=== PATIENT | female | born 1945 | race Caucasian/White ===

== ENCOUNTER 2018-05-14 15:21 | Inpatient (IN) | payer MEDICARE, OTHER ==
[~2018-05-14] VITALS: Ht 165.1 cm; Wt 73.6 kg
[2018-05-14] MEDS ORDERED: HYDROCODONE/APAP 7.5MG-325MG 1 EA TAB PO PRN (15:30)
[2018-05-14] MEDS ORDERED: MORPHINE SULFATE 2 MG/ML SYR IM STA (16:08)
--- NOTE | 2018-05-14 16:22 | Diagnostic Imaging Report ---
EXAM: CT Pelvis WITHOUT contrast INDICATION: Hip pain. Left hip fracture. Fall. COMPARISON: None. TECHNIQUE: Pelvis were scanned utilizing a multidetector helical scanner from the iliac crest to the pubic symphysis without administration of IV contrast. Coronal and sagittal reformations were obtained. Routine protocol was performed. IV CONTRAST: None. ORAL CONTRAST: Water RADIATION DOSE: Total DLP: 438.41 mGy*cm Estimated effective dose: (DLP x 0.015 x size factor) mSv COMPLICATIONS: None FINDINGS: LINES and TUBES: None. GI TRACT: There is a large amount of retained feces in the colon which could be due to constipation. PELVIC ORGANS/BLADDER: Unremarkable. LYMPH NODES: No lymphadenopathy. VESSELS: Scattered vascular calcifications are seen.. PERITONEUM / RETROPERITONEUM: No free air or fluid. BONES: Postsurgical changes are seen about the visualized lower lumbar spine/sacrum. There is diffuse osteopenia. There is a comminuted slightly displaced left hip fracture through the left femoral head/neck region. This is best seen on coronal reformatted image 50 through 55. Several adjacent small bone fragments are seen. Scattered degenerative changes are seen. SOFT TISSUES: A metallic device is seen over the left anterior lower abdomen. IMPRESSION: 1. Comminuted slightly displaced left hip fracture through the left femoral head/neck region. Several adjacent small bone fragments are seen Signed by: Dr. Myron Culver M.D. on 05/14/2018 4:18 PM
[2018-05-14] MEDS ORDERED: ONDANSETRON HCL INJ 2 MG/ML VIAL IV STA (17:15)
[2018-05-14 17:22] LABS: BASOPHILS % 0.4 % (0.0-1.0); EOSINOPHILS # (AUTO) 0.1 (0.0-0.4); HEMATOCRIT 32.6 % (34.2-44.1); HEMOGLOBIN 10.9 g/dL (12.0-16.0); LYMPHOCYTES # (AUTO) 0.8 (1.0-3.2); LYMPHOCYTES % 15.2 % (18.0-39.1); MEAN CORPUSCULAR HEMOGLOBIN 31.2 pg (28-32); MEAN CORPUSCULAR HGB CONC 33.4 g/dL (31-35); MEAN CORPUSCULAR VOLUME 93.4 fL (81-99); MONOCYTES # (AUTO) 0.5 (0.2-0.8); MONOCYTES % 8.8 % (4.4-11.3); NEUTROPHILS # (AUTO) 3.8 (2.1-6.9); NEUTROPHILS % 73.2 % (38.7-80.0); PLATELET COUNT 183 x10e3/uL (140-360); RED BLOOD COUNT 3.49 x10e6/uL (3.6-5.1); RED CELL DISTRIBUTION WIDTH 11.6 % (11.7-14.4)
[2018-05-14 17:37] LABS: INR 1.2; PROTHROMBIN TIME 14.3 seconds (11.9-14.5)
[2018-05-14 17:38] LABS: PARTIAL THROMBOPLASTIN TIME 31.6 seconds (23.8-35.5)
[2018-05-14 17:43] LABS: ALBUMIN 3.4 g/dL (3.5-5.0); ALBUMIN/GLOBULIN RATIO 1.1 (0.8-2.0); ANION GAP 11.7 mmol/L (8-16); CALCIUM 9.2 mg/dL (8.4-10.2); CREATININE, SERUM 1.03 mg/dL (0.57-1.11); POTASSIUM 3.7 mmol/L (3.5-5.1)
[2018-05-14] MEDS ORDERED: ONDANSETRON HCL INJ 2 MG/ML VIAL IV PRN (17:45)
[2018-05-14] MEDS: SODIUM CHLORIDE 0.9% 1000ML 1,000 ML IV SCH (18:14)
[2018-05-14] MEDS ORDERED: ABILIFY5 MG PO (18:17)
[2018-05-14] MEDS ORDERED: CHANTIX0.5 MG PO (18:17)
[2018-05-14] MEDS ORDERED: OMEPRAZOLE40 MG PO (18:17)
[2018-05-14] MEDS ORDERED: OXYBUTYNIN CHLOR5 MG PO (18:17)
[2018-05-14] MEDS ORDERED: PROPRANOLOL HCL40 MG PO (18:17)
[2018-05-14] MEDS ORDERED: GABAPENTIN300 MG PO (18:17)
[2018-05-14] MEDS ORDERED: CLONIDINE HCL0.1 MG PO (18:17)
[2018-05-14] MEDS ORDERED: COUMADIN2 MG PO (18:17)
--- NOTE | 2018-05-14 18:36 | Consultation ---
DATE OF CONSULTATION: May 14, 2018 CHIEF COMPLAINT: Left hip pain. HISTORY OF PRESENT ILLNESS: This patient is a 72-year-old female who complains of left hip pain after suffering a fall yesterday. She states she was walking out on her daughter's patio and tripped over a box landing on her left side. She states that she had difficulty bearing weight on the left leg. She states her pain got progressively worse, and thus she came into the ER this afternoon. She presents with outside x-rays, which show a left femoral neck fracture, and thus orthopedics was consulted. She states prior to the fall that she ambulated independently. 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 She is otherwise fairly healthy. PAST MEDICAL HISTORY: Hypertension, coronary artery disease with 2 stents placed roughly 5 years ago, history of 6 back surgeries, and recent pain pump placement. SOCIAL HISTORY: Patient is and lives alone. She states she has good family support from her children. She denies smoking or drinking. ALLERGIES: NO KNOWN DRUG ALLERGIES. PHYSICAL EXAMINATION GENERAL: This is a well-nourished female in no apparent distress. She is awake, alert and oriented appropriately. EXTREMITIES: Gross inspection of her left hip and thigh area shows no swelling. There is some slight bruising over the lateral thigh. There is tenderness to the area with palpation. She has pain with any attempts at passive range of motion of the left leg. The left leg is in neutral rotation. She has some abrasions over the anterolateral aspect of the knee. The knee is grossly stable. Her calf is soft and nontender. Distal motor exam at the foot and ankle is intact. Distal neurovascular exam is normal. IMAGING: Outside x-rays were reviewed and show a left femoral neck fracture. This is impacted. She also has a CT scan of the pelvis which shows the same thing. ASSESSMENT AND PLAN: This is a 72-year-old female with a left hip fracture. The findings and options were discussed with the patient and her daughter. The treatment was discussed. I explained the surgical nature of the fracture. The risks and benefits of a left total hip replacement were explained. The recovery was discussed. The patient and her daughter state they both understand and wish to proceed. I also discussed the increased difficulty with pain management and the postoperative care. Due to her lengthy use of chronic narcotics, the patient states she understands this and has dealt with this in the past with previous surgeries. We plan on proceeding with a left total hip replacement sometime tomorrow. DICTATED BY AARTI EDEN PA-C Job#: [id number] RI
[2018-05-14 18:44] VITALS: BP 144/65
[2018-05-14 20:00] VITALS: BP 129/62
[2018-05-14] MEDS: MORPHINE SULFATE 2 MG/ML SYR IV PRN (20:20)
[2018-05-14 23:21] VITALS: BP 129/62
[2018-05-14 23:27] VITALS: BP 129/62
[2018-05-14 23:34] VITALS: BP 129/62
[2018-05-15] VITALS (9 sets, daily range): BP systolic 93–153; BP diastolic 47–72
[2018-05-15] MEDS: MORPHINE SULFATE 2 MG/ML SYR IV PRN ×4 (00:44→20:25)
[2018-05-15] MEDS ORDERED: HYDROCODONE/APAP 7.5MG-325MG 1 EA TAB PO PRN (03:46)
[2018-05-15] MEDS: SODIUM CHLORIDE 0.9% 1000ML 1,000 ML IV SCH ×3 (06:30→23:42)
[2018-05-15] MEDS ORDERED: ROPIVACAINE 246.25 MG, EPINEPHRINE HCL 1:1000 0.5 MG, CLONIDINE HCL 0.08 MG, KETOROLAC ... IV ONE ×5 (09:45)
[2018-05-15] MEDS ORDERED: CEFAZOLIN SOD 2 GM/D5W 50ML 50 ML IV SCH (11:00)
[2018-05-15] MEDS ORDERED: TRANEXAMIC ACID 1,000 MG/10 ML ML ONE (11:50)
[2018-05-15] MEDS ORDERED: BACITRACIN 50,000 UNIT VIAL ONE (11:51)
[2018-05-15] MEDS ORDERED: ROCURONIUM BROMIDE 10 MG/ML 5ML VIAL ONE (12:03)
[2018-05-15] MEDS ORDERED: LIDOCAINE HCL 2% LOCAL INJ 5 ML SDV VIAL INJ ONE (12:03)
[2018-05-15] MEDS ORDERED: GLYCOPYRROLATE INJ 1MG/ 5 ML SYR ONE (12:03)
[2018-05-15] MEDS ORDERED: ONDANSETRON HCL INJ 2 MG/ML VIAL ONE (12:03)
[2018-05-15] MEDS ORDERED: PROPOFOL IV EMULSION 10 MG/ML 20 ML VIAL ONE (12:03)
[2018-05-15] MEDS ORDERED: DEXAMETHASONE SOD PHOS INJ 4 MG/ML VIAL ONE (12:03)
[2018-05-15] MEDS ORDERED: NEOSTIGMINE 5 MG/5ML SYR ONE (12:03)
[2018-05-15] MEDS ORDERED: SEVOFLURANE INHAL SOLN 250 ML PEN BTL ONE (12:03)
[2018-05-15] MEDS ORDERED: PROMETHAZINE HCL (IM) 25 MG/ML VIAL INJ PRN (13:45)
[2018-05-15] MEDS ORDERED: HYDROCODONE/APAP 5MG-325MG TAB PO PRN (13:45)
[2018-05-15] MEDS ORDERED: ONDANSETRON HCL INJ 2 MG/ML VIAL IV PRN (13:45)
[2018-05-15] MEDS ORDERED: ZOLPIDEM TARTRATE 5 MG TAB PO PRN (13:45)
[2018-05-15] MEDS ORDERED: DOCUSATE SODIUM 100 MG CAP PO PRN (13:45)
[2018-05-15] MEDS ORDERED: ACETAMINOPHEN 650 MG SUPP PR PRN (13:45)
[2018-05-15] MEDS ORDERED: CEFAZOLIN SOD 1 GM/NS 50ML 50 ML IV SCH (14:00)
--- NOTE | 2018-05-15 14:28 | Diagnostic Imaging Report ---
PROCEDURE:X-RAY PELVIS, AP VIEW COMPARISON:CT pelvis 05/14/2018 INDICATIONS:POST OP HIP LEFT FINDINGS: Interval placement of a left hip prothesis for the previously noted left femoral neck fracture. Hardware appears intact without hardware fracture or loosening. No interval development of acute fractures or dislocations. Fixation hardware of the SI joints and spine are noted. The bones are demineralized. A battery pack projects over the left lower abdomen. Soft-tissue swelling and few foci of subcutaneous emphysema of the left hip related to recent surgery. CONCLUSION: Interval placement of a left hip prothesis for the previously noted left femoral neck fracture without radiographic complication. Dictated by: Catalino Perez M.D. on 05/15/2018 at 14:31 Electronically approved by: Catalino Perez M.D. on 05/15/2018 at 14:31
--- NOTE | 2018-05-15 14:44 | Operative Report ---
DATE OF PROCEDURE: May 15, 2018 BUSINESS BROKER: Oli Taylor PA-C The patient was brought to the operating room for induction of anesthesia. Throughout this case, my PA's assistance was necessary for retraction of soft tissue and positioning of the extremity. This allows for efficient and technically successful execution of the operation and is considered medically necessary. PREOPERATIVE DIAGNOSIS: Left femoral neck fracture. POSTOPERATIVE DIAGNOSIS: Left femoral neck fracture. PROCEDURE: Left total hip arthroplasty. INDICATIONS: The patient is a 72-year-old lady with an acute left femoral neck fracture. Her past history is significant for failed back syndrome. She was recently treated by a pain management doctor with a pain pump placement. This has not been injected with medicine as yet. 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 We have discussed the findings and options. We plan on a left total hip arthroplasty. The risks and benefits have been explained. She states she understands and wishes to proceed. DESCRIPTION OF PROCEDURE: The patient was brought to the operating room and placed under general anesthetic. She received prophylactic antibiotics and tranexamic acid in the holding area. She was positioned in the right lateral decubitus position. Her left hip was prepped and draped in a sterile manner. A preoperative time out was performed. A posterior approach was made to the left hip. Care was taken to avoid injury to the sciatic nerve. The anesthetic team had some challenges controlling her blood pressure due to her chronic pain medicine. More bleeding than usual was encountered. The posterior capsule was carefully exposed and released. The hip was brought up into flexion and internal rotation. An oscillating saw was used to resect the remainder of the femoral neck. The femoral head was removed. Acetabular retractors were placed. A [employer] system was used throughout the case. The socket was sequentially reamed up to 53 mm. Labral remnants were excised. A Ileana [employer]omet OsseoTi socket with a 54 mm outer diameter was then impacted into place. Fixation was augmented with a single 25 mm screw placed into the ilium. The wound was thoroughly irrigated on multiple occasions with a shower-tip pulsatile lavage. A portion of a 100 mL premixed pericapsular FADUMO injection was placed into the surrounding soft tissue. A highly crosslinked polyethylene liner with a 36 mm inner diameter was then impacted into place. Attention was directed towards the proximal femur. A box-cutting osteotome and taper pin reamer were used to establish entry to the femoral canal. The Taperloc broaches were trialed. A number 12 stem had good canal fill and stability for trial reduction. A standard neck and 36 mm head were felt to provide optimal soft-tissue balancing, episcopalian of limb length and stability. The hip was put through an arc of motion and noted to have no impingement or dislocation. The trial implants were removed. The remainder of the pericapsular injection was placed into the soft tissue. The hip was thoroughly irrigated with a pulsatile lavage. The implants were seated, and a final reduction was performed. The posterior capsule was repaired with number 2 Ethibond. The tensor fascia and gluteal fascia were closed with number 2 Ethibond. The skin was closed with subcuticular Vicryl, Mastisol and Steri-Strips. She was returned to a supine position after placing of sterile bandage. She was extubated and transported to the recovery room in stable condition. Blood loss was approximately 200 mL. At the end of the procedure, all needle and sponge counts were correct. Job#: [id number] EV
[2018-05-15] MEDS ORDERED: MIDAZOLAM HCL 2 MG/2 ML VIAL ONE (15:28)
[2018-05-15] MEDS ORDERED: MORPHINE SULFATE INJ 10 MG/ML ONE (15:28)
[2018-05-15] MEDS ORDERED: FENTANYL CITRATE/PF 100MCG/2 ML INJ ONE (15:28)
[2018-05-15] MEDS: ASPIRIN 325 MG TAB PO SCH (16:53)
[2018-05-15] MEDS: CEFAZOLIN SOD 1 GM VIAL IV SCH (16:53)
--- NOTE | 2018-05-15 16:56 | Consultation ---
DATE OF CONSULTATION: May 15, 2018 CARDIOLOGY CONSULTATION REQUESTING PHYSICIAN: Dr. Jennifer Mojica REASON FOR CONSULTATION: Preoperative evaluation. HISTORY OF PRESENT ILLNESS: This is a 72-year-old woman with history of coronary artery disease status post stents times 2, carotid artery disease, hypertension, and degenerative disk disease who presented after a fall. The patient reports she had been walking out onto the patio to check on her dogs when she tripped over a box. She denied any chest pain or lightheadedness prior to her fall. Due to the subsequent pain, she presented to the ER for further evaluation and was found to have a left femoral neck fracture for which orthopedic surgery was consulted. The patient denies any chest pain, shortness of breath, palpitations, edema, orthopnea, PND or lightheadedness. She is status post left total hip arthroplasty by orthopedic surgery earlier today. REVIEW OF SYSTEMS: Negative except as per HPI. PAST MEDICAL HISTORY 1. Hypertension. 2. Coronary artery disease status post stent times 2 approximately 5 years prior. 3. Carotid artery disease. 4. Degenerative disk disease. PAST SURGICAL HISTORY 1. Multiple back and neck surgeries. 2. Hysterectomy. 3. Recent pain pump implantation. 4. Bunionectomy. ALLERGIES: NO KNOWN DRUG ALLERGIES. MEDICATIONS: Please see EMR. SOCIAL HISTORY: Denies tobacco, alcohol, illicit drugs. FAMILY HISTORY: Noncontributory. PHYSICAL EXAMINATION VITAL SIGNS: Temperature 97.5 degrees, pulse 91, respiratory rate 16, blood pressure 102/56, oxygen saturation 91% on nasal cannula. GENERAL: Elderly woman, well-developed, well-nourished, in no acute distress. HEENT: Normocephalic, atraumatic. Pupils equal. No scleral icterus. NECK: Supple. No thyromegaly or cervical lymphadenopathy. No carotid bruits. LUNGS: Clear to auscultation bilaterally. No wheezes or crackles. CARDIOVASCULAR: Normal rate, regular rhythm. No murmur. Normal S1, S2. ABDOMEN: Soft, nontender. NEURO: Nonfocal exam. EXTREMITIES: Trace edema on the left status post surgery. LABS: WBC 5.12, hemoglobin 10.9, hematocrit 32.6, platelets 183. Sodium 132, potassium 3.7, chloride 96, CO2 29, BUN 17, creatinine 1.03. IMPRESSION 1. Left femoral neck fracture status post left hip arthroplasty. 2. Coronary artery disease status post stent times 2. 3. Carotid artery disease. 4. Degenerative disk disease. 5. Hypertension. RECOMMENDATIONS: Continue home cardiac medications. Monitor patient on telemetry. Given fall and history of carotid artery disease, we will obtain bilateral carotid Dopplers. Monitor patient on telemetry while admitted. We will check fasting lipid panel as well. Resume aspirin once cleared from orthopedic standpoint. Thank you for this consult. We will continue to follow. Job#: [id number] EBLIA POWELL
[2018-05-15] MEDS ORDERED: CELECOXIB 100 MG CAP PO SCH (17:00)
[2018-05-15] MEDS: ACETAMINOPHEN 1000 MG/100 ML IV SCH (17:41)
[2018-05-15] MEDS: KETOROLAC TROMETHAMINE 30 MG/ML VIAL IV PRN (18:49)
[2018-05-15] MEDS ORDERED: GABAPENTIN300 MG PO (20:43)
[2018-05-15] MEDS ORDERED: CRESTOR10 MG PO (20:43)
[2018-05-15] MEDS ORDERED: VENLAFAXINE HCL75 M2 PO (20:43)
[2018-05-15] MEDS ORDERED: LISINOPRIL10 MG PO (20:43)
[2018-05-15] MEDS: DIPHENHYDRAMINE HCL INJ 50 MG/ML VIAL IM/IV PRN (21:55)
[2018-05-16] VITALS: BP 122/58
[2018-05-16] MEDS: CEFAZOLIN SOD 1 GM VIAL IV SCH ×2 (00:30→09:00)
[2018-05-16 04:00] VITALS: BP 160/86
[2018-05-16] MEDS: ACETAMINOPHEN 1000 MG/100 ML IV SCH ×3 (06:00→13:00)
[2018-05-16 06:31] LABS: HEMATOCRIT 25.5 % (34.2-44.1); HEMOGLOBIN 8.7 g/dL (12.0-16.0)
[2018-05-16 07:51] VITALS: BP 155/69
[2018-05-16] MEDS: MORPHINE SULFATE 2 MG/ML SYR IV PRN ×4 (09:00→22:47)
[2018-05-16] MEDS: DIPHENHYDRAMINE HCL INJ 50 MG/ML VIAL IM/IV PRN ×2 (09:00→17:57)
[2018-05-16] MEDS: ASPIRIN 325 MG TAB PO SCH ×2 (09:00→16:58)
[2018-05-16] MEDS: LISINOPRIL 20 MG TAB PO SCH (09:00)
[2018-05-16] MEDS: GABAPENTIN 300 MG CAP PO SCH ×3 (09:00→20:40)
[2018-05-16] MEDS: VENLAFAXINE HCL 75 MG CAPCR PO SCH (09:00)
[2018-05-16] MEDS: CELECOXIB 200 MG CAP PO SCH ×2 (09:00→16:58)
[2018-05-16] MEDS ORDERED: LISINOPRIL 10 MG TAB PO SCH (09:00)
[2018-05-16 11:42] VITALS: BP 119/59
[2018-05-16] MEDS: KETOROLAC TROMETHAMINE 30 MG/ML VIAL IV PRN (11:58)
[2018-05-16] MEDS ORDERED: ACETAMINOPHEN 1000 MG/100 ML IV PRN (13:45)
--- NOTE | 2018-05-16 15:23 | Progress Note ---
DATE: May 16, 2018 SUBJECTIVE: The patient denies chest pain or shortness of breath. She walked with physical therapy 150 feet. OBJECTIVE VITAL SIGNS: Temperature 98.2 degrees, pulse 79, respiratory rate 16, blood pressure 119/59. Oxygen saturation 99% on room air. GENERAL: Awake, alert, in no acute distress. LUNGS: Clear to auscultation bilaterally. No wheezes or crackles. CARDIOVASCULAR: Normal rate, regular rhythm. No murmur. Normal S1, S2. ABDOMEN: Soft, nontender. EXTREMITIES: Trace edema. CARDIAC MEDICATIONS 1. Lisinopril 40 mg p.o. daily. 2. Aspirin 325 mg p.o. b.i.d. 3. Simvastatin 20 mg p.o. nightly. LABS: Hemoglobin 8.7, hematocrit 25.5. TELEMETRY: Normal sinus rhythm. IMPRESSION 1. Left femoral neck fracture status post left hip arthroplasty. 2. Coronary artery disease status post stent times 2. 3. Carotid artery disease. 4. Degenerative disk disease. 5. Hypertension. RECOMMENDATIONS: Continue home cardiac medications. The patient's blood pressure is for the most acceptable for age. Carotid Dopplers suggested hemodynamically significant stenosis in the left carotid artery. Once patient has recovered from her surgery, plan for CTA of the neck to further evaluate the severity of her carotid disease. The patient's lipid panel is well controlled. We will make no changes to her therapy at this time. Patient has been started on high dose aspirin, decrease to 81 mg daily if acceptable from orthopedic standpoint. Thank you for this consult. We will continue to follow. Job#: [id number] BELIA
[2018-05-16 16:20] VITALS: BP 141/63
[2018-05-16 20:00] VITALS: BP 147/67
[2018-05-16] MEDS: HYDROCODONE/APAP 7.5MG-325MG 1 EA TAB PO PRN ×2 (20:05→20:36)
[2018-05-16] MEDS ORDERED: SIMVASTATIN 20 MG TAB PO SCH (21:00)
[2018-05-16] MEDS ORDERED: SIMVASTATIN 40 MG TAB PO SCH (21:00)
[2018-05-17 00:31] VITALS: BP 137/63
[2018-05-17 04:00] VITALS: BP 137/63
[2018-05-17] MEDS: MORPHINE SULFATE 2 MG/ML SYR IV PRN ×2 (04:16→08:16)
[2018-05-17 06:28] LABS: HEMATOCRIT 26.5 % (34.2-44.1); HEMOGLOBIN 8.8 g/dL (12.0-16.0)
[2018-05-17 07:42] VITALS: BP 160/67
[2018-05-17] MEDS: GABAPENTIN 300 MG CAP PO SCH ×2 (08:48→15:00)
[2018-05-17] MEDS: CELECOXIB 200 MG CAP PO SCH (08:48)
[2018-05-17] MEDS: VENLAFAXINE HCL 75 MG CAPCR PO SCH (08:48)
[2018-05-17] MEDS: LISINOPRIL 20 MG TAB PO SCH (08:48)
[2018-05-17] MEDS: ASPIRIN 325 MG TAB PO SCH (08:48)
--- NOTE | 2018-05-17 09:32 | Discharge Summary ---
Ms. Bruno is a 72-year-old female with a history of chronic back pain. She has a pain pump. Hypertension, hyperlipidemia, coronary artery disease, status post stent. She came to the emergency room after falling and breaking her left hip. She had a total hip replacement the day before yesterday. At the present time, she is walking more than 100 yards. She is feeling very good, so the plan is to discharge her home. On physical examination, she is awake and alert. Temperature is 98.6, blood pressure 160/67. The heart has regular rate. Lungs are clear to auscultation. Abdomen is soft. On the blood work, potassium is 3.7, creatinine 1.03, glucose 135, white count 5.12, hemoglobin 8.8, hematocrit 26.5. DISCHARGE DIAGNOSES 1. Status post left hip fracture, status post replacement. 2. Chronic back pain. 3. Coronary artery disease, status post stent. 4. Hypertension. The plan at the present time is to discharge her home if it is okay with orthopedics. Continue all her home medications. Follow up with her PCP in 1 week. She needs to follow up with orthopedics as directed by them. Please see home medication reconciliation list. All of this was discussed with the patient and daughter, and all questions were answered to satisfaction. EDMUNDO GALLEGO MD Job#: [id number]
[2018-05-17] MEDS: HYDROCODONE/APAP 7.5MG-325MG 1 EA TAB PO PRN (10:40)
[2018-05-17 12:06] VITALS: BP 140/63
--- NOTE | 2018-05-17 12:22 | Progress Note ---
DATE: May 17, 2018 CARDIOLOGY PROGRESS NOTE SUBJECTIVE: The patient denies chest pain or shortness of breath. She states she will be going home later today. OBJECTIVE VITAL SIGNS: Temperature 98.6 degrees, pulse 100, respiratory rate 20, blood pressure 166/67, oxygen saturation 93% on room air. GENERAL: Awake, alert, in no acute distress. LUNGS: Clear to auscultation bilaterally. No wheezes or crackles. CARDIOVASCULAR: Normal rate, regular rhythm. No murmur. Normal S1, S2. ABDOMEN: Soft, nontender. EXTREMITIES: No edema. CARDIAC MEDICATIONS 1. Lisinopril 40 mg p.o. daily. 2. Aspirin 325 mg p.o. b.i.d. 3. Simvastatin 20 mg p.o. nightly. LABS: Hemoglobin 8.8, hematocrit 26.5. TELEMETRY: Normal sinus rhythm. IMPRESSION 1. Left femoral neck fracture, status post left hip arthroplasty. 2. Coronary artery disease, status post stent times 2. 3. Carotid artery disease with evidence of hemodynamically significant stenosis in the left carotid. 4. Degenerative disk disease. 5. Hypertension. RECOMMENDATIONS: Continue current cardiac medications. The patient's blood pressure is typically acceptable for age. Once the patient has recovered from her surgery, plan for CTA of the neck to further evaluate the severity of her carotid disease. The patient is on aspirin 325 mg p.o. b.i.d. per orthopedic surgery. Once this is no longer needed, plan to decrease to 81 mg p.o. daily. Thank you for this consult. We will continue to follow. Job#: [id number]
== END 2018-05-17 15:57 | disposition home or self-care (01) | DRG 470 ==
LOC: ER 15:21 → ERHOLD 17:44 → MED/SURG3 18:37 → MED/SURG 05-15 14:28
PROVIDERS: ADMIT Internal Medicine; ATTEND Internal Medicine
PROC: 0SRB0J9 Replacement of Left Hip Joint with Synthetic Substitute, Cemented, Open Approach (ICD-10-PCS; principal; 2018-05-15 14:00)
DX: S72.002A Fracture of unspecified part of neck of left femur, initial encounter for closed fracture (principal); I10 Essential (primary) hypertension; I25.10 Atherosclerotic heart disease of native coronary artery without angina pectoris; G89.29 Other chronic pain; Z95.5 Presence of coronary angioplasty implant and graft; M54.2 Cervicalgia; M50.30 Other cervical disc degeneration, unspecified cervical region; Z79.01 Long term (current) use of anticoagulants; E78.5 Hyperlipidemia, unspecified; I65.22 Occlusion and stenosis of left carotid artery; W19.XXXA Unspecified fall, initial encounter
CPT/HCPCS: 36415; 72170; 72192; 80053; 80061; 85014; 85018; 85025; 85610; 85730; 86850; 86900; 93880; 97139; 99284; C1713; J0171; J0690; J1100; J1200; J1885; J2001; J2250; J2270; J2405; J2795; J7030

== ENCOUNTER → 2018-10-02 | Outpatient (CLI) | payer MEDICARE, OTHER ==
[~2018-10-02] MED LIST: ABILIFY5 MG PO; CHANTIX0.5 MG PO; CLONIDINE HCL0.1 MG PO; COUMADIN2 MG PO; CRESTOR10 MG PO; GABAPENTIN300 MG PO; IOPAMIDOL 370 MG/ML 200 ML INFUS..BTL INJ ONE; LISINOPRIL10 MG PO; OMEPRAZOLE40 MG PO; OXYBUTYNIN CHLOR5 MG PO; PROPRANOLOL HCL40 MG PO; SODIUM CHLORIDE 0.9% 50ML 50 ML ONE; VENLAFAXINE HCL75 M2 PO
[2018-10-02 15:14] LABS: BLOOD UREA NITROGEN 17 mg/dL (7-26); BUN/CREATININE RATIO 20 (6-25); CREATININE, SERUM 0.83 mg/dL (0.57-1.11); EST GLOMERULAR FILTRATION RATE > 60 ML/MIN (60-)
--- NOTE | 2018-10-04 09:39 | Diagnostic Imaging Report ---
EXAMINATION: CT angiogram of the neck CLINICAL HISTORY: Dizziness, severe carotid stenosis, pre-stent evaluation COMPARISON STUDIES: None TECHNIQUE: Axial images were obtained from the thoracic inlet. Coronal and sagittal images reconstructed from the axial data. For optimization of of anatomic evaluation, multi-planar reconstructions, maximum intensity projections, and advanced 3D off-line post-processing was obtained and performed on a dedicated stand-alone workstation under the direct supervision of the interpreting physician. Intravenous contrast: 100 mL of Isovue-370. Dose modulation, iterative reconstruction, and/or weight based adjustment of the mA/kV was utilized to reduce the radiation dose to as low as reasonably achievable. FINDINGS: If present, stenosis of the carotid bulbs is measured based on NASCET criteria i.e area of maximum stenosis compared to the cervical ICA distal to the bulb. Aortic arch and major vessels: Minimal atherosclerotic plaque at the origin of the bilateral vertebral arteries without significant stenoses. Calcified atherosclerotic plaque throughout the aortic arch is also noted. Common carotid arteries: Right: Patent. No abnormalities. Left :Soft and calcified plaque without associated significant stenosis.. Carotid bulbs: Right: Minimal calcified plaque without associated significant stenosis (less than 50%). Left: Prominent mostly calcified almost circumferential plaque results in severe stenoses (greater than 70%), with an approximately 1 cm length for the area of maximum stenosis.. Internal carotid arteries: Right: Patent. No abnormalities. Left: Patent. No abnormalities. Vertebral arteries: Patent. No abnormalities. Incidental findings: Status post corpectomy and fusion from C3 to C6 with solid interbody and posterior fusion. IMPRESSION: 1. Severe stenosis of the left carotid bulb (greater than 70%). 2. Mild stenosis of the right carotid bulb (less than 50%). 3. Solid cervical spine fusion from C3 to C6. Signed by: Dr. Pooja Shannon M.D. on 10/04/2018 9:36 AM
== END ==
LOC: CT 14:28
PROVIDERS: ATTEND Internal Medicine
DX: R42 Dizziness and giddiness (principal); I65.23 Occlusion and stenosis of bilateral carotid arteries
CPT/HCPCS: 36415; 70498; 82565; 84520; Q9967

== ENCOUNTER 2018-10-28 11:30 | Observation (INO) | payer MEDICARE, OTHER ==
[~2018-10-28] VITALS: Ht 165.1 cm; Wt 73.5 kg
[2018-10-28] VITALS (13 sets, daily range): BP systolic 93–208; BP diastolic 67–179
[~2018-10-28 11:30] MED LIST changes: -IOPAMIDOL 370 MG/ML 200 ML INFUS..BTL INJ ONE; -SODIUM CHLORIDE 0.9% 50ML 50 ML ONE
[2018-10-28] MEDS ORDERED: SODIUM CHLORIDE 0.9% 1000ML 1,000 ML ONE (12:56)
[2018-10-28 13:53] LABS: BASOPHILS % 0.4 % (0.0-1.0); EOSINOPHILS # (AUTO) 0.1 (0.0-0.4); EOSINOPHILS % 0.9 % (0.0-6.0); HEMATOCRIT 37.3 % (34.2-44.1); HEMOGLOBIN 12.4 g/dL (12.0-16.0); LYMPHOCYTES # (AUTO) 1.8 (1.0-3.2); LYMPHOCYTES % 33.8 % (18.0-39.1); MEAN CORPUSCULAR HEMOGLOBIN 29.9 pg (28-32); MEAN CORPUSCULAR HGB CONC 33.2 g/dL (31-35); MEAN CORPUSCULAR VOLUME 89.9 fL (81-99); MONOCYTES # (AUTO) 0.4 (0.2-0.8); MONOCYTES % 7.9 % (4.4-11.3); NEUTROPHILS # (AUTO) 3.1 (2.1-6.9); PLATELET COUNT 212 x10e3/uL (140-360); RED BLOOD COUNT 4.15 x10e6/uL (3.6-5.1); RED CELL DISTRIBUTION WIDTH 13.6 % (11.7-14.4)
[2018-10-28 14:03] LABS: INR 0.95; PARTIAL THROMBOPLASTIN TIME 29.8 seconds (23.8-35.5); PROTHROMBIN TIME 13.5 seconds (11.9-14.5)
[2018-10-28 14:11] LABS: ALBUMIN 3.9 g/dL (3.5-5.0); ALBUMIN/GLOBULIN RATIO 1.3 (0.8-2.0); CALCIUM 9.5 mg/dL (8.4-10.2); CREATININE, SERUM 1.01 mg/dL (0.57-1.11)
[2018-10-28] MEDS ORDERED: HYDRALAZINE HCL 20 MG/ML VIAL ONE ×2 (14:24→20:03)
[2018-10-28] MEDS ORDERED: ALPRAZOLAM 0.5 MG TAB ONE (14:48)
[2018-10-28] MEDS ORDERED: HEPARIN SOD/SOD CHLORIDE 2,000 ML ONE (19:28)
[2018-10-28] MEDS ORDERED: FENTANYL CITRATE/PF 100MCG/2 ML INJ ONE (19:28)
[2018-10-28] MEDS ORDERED: MIDAZOLAM HCL 2 MG/2 ML VIAL ONE (19:28)
[2018-10-28] MEDS ORDERED: LIDOCAINE HCL 2% LOCAL 20 ML VIAL ONE (19:28)
[2018-10-28] MEDS ORDERED: IOPAMIDOL 370 MG/ML 200 ML INFUS..BTL INJ ONE ×2 (19:29→19:59)
--- NOTE | 2018-10-28 21:01 | Operative Report ---
DATE OF PROCEDURE: October 28, 2018 PROCEDURES PERFORMED 1. Conscious sedation 26 minutes. 2. Selective coronary angiography x2. 3. Left heart catheterization. 4. Carotid angiography x2. PREPROCEDURE DIAGNOSES 1. Carotid artery disease. 2. Chest pain. 3. Coronary artery disease, status post percutaneous coronary intervention. ESTIMATED BLOOD LOSS: Less than 20 mL. SPECIMENS REMOVED: None. PROCEDURE IN DETAIL: After informed consent was obtained, the patient was brought to the cardiac catheterization laboratory in the fasting, nonsedated state. Bilateral groins were prepped and draped in the usual sterile fashion. Then 2% lidocaine was infiltrated over the right anterior groin for local anesthesia. Using a micropuncture needle, the right common femoral artery was accessed via the modified Seldinger technique, and a 5-Croatian sheath was placed. Next, diagnostic coronary angiography was performed using a JL4 and 3DRC catheters. This same 3DRC catheter was used to self engage bilateral carotid arteries and digital subtraction angiography was performed. Left heart catheterization was performed using a left angled pigtail catheter. The arterial site was closed with a mixed device. The patient tolerated the procedure well with no immediate complications, and transported back to her room in stable condition. PROCEDURAL FINDINGS: 1. Left main coronary artery is patent without significant coronary artery disease. 2. The left anterior descending coronary artery is a medium caliber vessel proximally and tapers down to a small vessel distally. The first diagonal branch is a medium caliber vessel. There is no significant coronary artery disease present in this coronary system. 3. Left circumflex coronary artery is a very tortuous vessel and has a patent stent seen in the mid portion. 4. Right coronary artery is heavily calcified; however, it is patent throughout its course. There is either heavy calcium in the mid portion of a patent stent present. 5. Left ventricular end diastolic pressure is approximately 20 to 24 mmHg. No aortic valve gradient present upon pullback. 6. Right carotid bulb has mild plaquing extending into the right internal carotid artery. 7. Left carotid bulb has a severe heavily calcified 90% stenosis extending into the left internal carotid artery. IMPRESSION AND RECOMMENDATIONS: This is a 72-year-old woman who was found to have patent coronary arteries and a heavily calcified severe 90% stenosis of the carotid bulb extending in the internal carotid artery. Job#: [id number]
[2018-10-28] MEDS ORDERED: ONDANSETRON HCL INJ 2 MG/ML VIAL ONE (21:09)
[2018-10-28] MEDS ORDERED: PROMETHAZINE HCL (IM) 25 MG/ML VIAL ONE (21:36)
[2018-10-28] MEDS ORDERED: ACETAMINOPHEN 325 MG TAB ONE (21:45)
[2018-10-29] VITALS: BP 194/90
[2018-10-29 07:58] VITALS: BP 150/81
[2018-10-29 08:33] VITALS: BP 150/81
[2018-10-29 11:38] VITALS: BP 149/70
== END 2018-10-29 14:11 | disposition home or self-care (01) ==
LOC: CATH LAB 11:30 → IMCU 22:24
PROVIDERS: ADMIT Internal Medicine Cardiovascular Disease; ATTEND Internal Medicine Cardiovascular Disease
DX: I25.110 Atherosclerotic heart disease of native coronary artery with unstable angina pectoris (principal); I65.23 Occlusion and stenosis of bilateral carotid arteries; I10 Essential (primary) hypertension; E78.5 Hyperlipidemia, unspecified; Z79.82 Long term (current) use of aspirin; Z83.3 Family history of diabetes mellitus; Z82.49 Family history of ischemic heart disease and other diseases of the circulatory system; Z01.812 Encounter for preprocedural laboratory examination
CPT/HCPCS: 36222; 36415; 80053; 85025; 85610; 85730; 93458; C1769; G0378 ×2; J0360; J2001; J2250; J2405; J2550; J7030; Q9967

== ENCOUNTER 2021-05-02 09:40 | Emergency (ER) | payer MEDICARE, OTHER ==
[~2021-05-02] VITALS: Ht 165.1 cm; Wt 73.5 kg
[2021-05-02] MEDS ORDERED: KETOROLAC TROMETHAMINE 30 MG/ML VIAL IM STA (10:09)
== END 2021-05-02 11:36 | disposition home or self-care (01) ==
LOC: ER 10:56
DX: M25.552 Pain in left hip (principal); I10 Essential (primary) hypertension; E78.5 Hyperlipidemia, unspecified; M54.9 Dorsalgia, unspecified; G89.29 Other chronic pain; Z95.5 Presence of coronary angioplasty implant and graft
CPT/HCPCS: 73502; 99283; J1885